=== PATIENT | female | born 1985 | race Two or more races ===

== ENCOUNTER → 2023-01-09 | Day surgery (SDC) | payer OTHER | END | disposition home or self-care (01) | LOC: EDBD → CIR.AMB 11:01 | PROVIDERS: ATTEND Obstetrics & Gynecology | DX: O02.1 Missed abortion (principal); O72.2 Delayed and secondary postpartum hemorrhage; Z20.822 Contact with and (suspected) exposure to COVID-19 ==

== ENCOUNTER 2023-09-15 08:20 | Emergency (ER) | payer OTHER ==
[~2023-09-15] VITALS: Ht 172.7 cm; Wt 93.0 kg
[2023-09-15 09:53] LABS: HEMATOCRIT 38.5 % (36.0-45.00); HEMOGLOBIN 12.7 g/dL (12.0-15.00); MEAN CELL VOLUME 82.7 fL (80.00-100.00); MEAN CORPUSCULAR HEMOGLOBIN 27.4 pg (27.00-32.0); MEAN CORPUSCULAR HGB CONC 33.1 g/dl (32.0-36.0); PLATELET COUNT 231 K/uL (150-450); RED BLOOD COUNT 4.66 M/uL (4.00-6.00); RED CELL DISTRIBUTION WIDTH 14.7 % (11.5-14.5)
[2023-09-15 10:18] LABS: INR 0.94; PROTHROMBIN TIME 9.9 SECONDS (9.0-11.5)
[2023-09-15 11:03] LABS: CALCIUM 9.4 mg/dL (8.5-10.1); CREATININE SERUM 0.72 mg/dL (0.55-1.02); GFR 92.18; POTASSIUM 3.36 mEq/L (3.5-5.1)
== END 2023-09-15 15:39 | disposition home or self-care (01) ==
LOC: ER 08:20
PROVIDERS: General Practice
DX: O26.899 Other specified pregnancy related conditions, unspecified trimester (principal); R10.2 Pelvic and perineal pain; Z3A.09 9 weeks gestation of pregnancy

== ENCOUNTER 2024-03-21 11:28 | Outpatient (CLI) | payer OTHER | END 2024-03-21 12:14 | disposition home or self-care (01) | LOC: NST 11:28 | PROVIDERS: ATTEND Obstetrics & Gynecology | DX: Z34.83 Encounter for supervision of other normal pregnancy, third trimester (principal) ==

== ENCOUNTER 2024-04-10 10:46 | Inpatient (IN) | payer OTHER ==
[~2024-04-10] VITALS: Ht 172.7 cm; Wt 103.4 kg
[2024-04-12 15:57] VITALS: BP 119/76
[2024-04-12] MEDS ORDERED: RINGERS SOLUTION,LACTATED 1,000 ML IV SCH (16:45)
[2024-04-12 16:55] LABS: URINE BILIRRUBIN Negative (NEGATIVE); URINE BLOOD Small; URINE COLOR Yellow; URINE GLUCOSE Negative (NEGATIVE); URINE KETONE Trace (NEGATIVE); URINE LEUKOCYTE Trace; URINE NITRATE Negative; URINE PROTEIN 30 (NEGATIVE)
[2024-04-12 16:56] LABS: URINE BACTERIA 303.6 uL (0.0-1933); URINE RBC 88.4 uL (0.0-20.8); URINE WBC 8.5 uL (0.0-23.2)
[2024-04-12 17:02] LABS: URINE APPEARANCE CLEAR
[2024-04-12 17:08] LABS: HEMATOCRIT 32.5 % (36.0-45.00); HEMOGLOBIN 11.1 g/dL (12.0-15.00); MEAN CELL VOLUME 81.6 fL (80.00-100.00); MEAN CORPUSCULAR HEMOGLOBIN 27.9 pg (27.00-32.0); MEAN CORPUSCULAR HGB CONC 34.2 g/dl (32.0-36.0); RED BLOOD COUNT 3.98 M/uL (4.00-6.00); RED CELL DISTRIBUTION WIDTH 15.4 % (11.5-14.5)
[2024-04-12 17:20] LABS: INR < 0.93; PARTIAL THROMBOPLASTIN TIME 23.6 SECONDS (22.0-34.0); PROTHROMBIN TIME 9.9 SECONDS (9.0-11.5)
[2024-04-12 17:28] LABS: ALBUMIN 2.8 gm/dL (3.4-5.0); BILIRUBIN TOTAL 0.75 mg/dL (0.3-1.2); CALCIUM 9.2 mg/dL (8.5-10.1); CREATININE SERUM 0.57 mg/dL (0.55-1.02); GFR 120.01; POTASSIUM 4.13 mEq/L (3.5-5.1); TOTAL PROTEIN 6.8 gm/dL (6.4-8.2)
[2024-04-12 17:40] LABS: PLATELET COUNT 144 K/uL (150-450)
[2024-04-12 20:00] VITALS: BP 121/59
[2024-04-12 23:25] VITALS: BP 128/74
[2024-04-13] VITALS (8 sets, daily range): BP systolic 120–137; BP diastolic 53–74
[2024-04-13] MEDS ORDERED: MORPHINE SULFATE 4 MG/ML CARTRIDGE IV PRN (00:45)
[2024-04-13] MEDS ORDERED: OXYTOCIN 20 UNITS/500ML RL PIGGYBAG IV ONE (07:03)
[2024-04-13] MEDS ORDERED: OXYTOCIN 500 ML IV NR (07:30)
[2024-04-13] MEDS ORDERED: OXYTOCIN 20 UNITS/1000ML RL PIGGYBAG IV ONE (07:52)
[2024-04-13] MEDS ORDERED: ERYTHROMYCIN BASE 1 GM TUBE OP ONE ×2 (07:52→12:30)
[2024-04-13] MEDS ORDERED: CHLORHEXIDINE GLUCONATE 120 ML BOTTLE TOP ONE ×2 (07:52→12:30)
[2024-04-13] MEDS ORDERED: LIDOCAINE HCL 1% 10ML VIAL ONE ×2 (07:52→11:22)
[2024-04-13] MEDS ORDERED: NALOXONE HCL 0.4 MG/ML AMPUL ONE (10:20)
[2024-04-13] MEDS ORDERED: OxyCODONE HCL/APAP UD (PERCOCET) PO PRN (12:00)
[2024-04-13] MEDS ORDERED: OXYTOCIN 1,000 ML IV SCH ×2 (12:00→12:30)
[2024-04-13] MEDS ORDERED: IBUprofen 400 MG TABLET PO PRN (12:00)
[2024-04-13] MEDS ORDERED: LIDOCAINE HCL 1% 10ML VIAL IJ ONE ×2 (12:30)
[2024-04-13] MEDS ORDERED: NALOXONE HCL 0.4 MG/ML AMPUL IV ONE (12:30)
[2024-04-14] VITALS: BP 103/57
[2024-04-14 08:00] VITALS: BP 129/82
[2024-04-14] MEDS ORDERED: HYDROCORTISONE 2.5% 30 GM TUBE TOP SCH (09:00)
[2024-04-14 15:32] VITALS: BP 138/76
[2024-04-15 00:59] VITALS: BP 135/82
[2024-04-15 09:23] VITALS: BP 116/82
== END 2024-04-15 12:23 | disposition home or self-care (01) | DRG 807 ==
LOC: OB/GYN 10:46 → LDR 04-12 16:10 → OB/GYN 04-13 14:07
PROVIDERS: Obstetrics & Gynecology; ADMIT Obstetrics & Gynecology; ATTEND Obstetrics & Gynecology
PROC: 4A1HXCZ Monitoring of Products of Conception, Cardiac Rate, External Approach (ICD-10-PCS; 2024-04-12)
PROC: 10E0XZZ Delivery of Products of Conception, External Approach (ICD-10-PCS; principal; 2024-04-13)
PROC: 0KQM0ZZ Repair Perineum Muscle, Open Approach (ICD-10-PCS; 2024-04-13)
PROC: 0W8NXZZ Division of Female Perineum, External Approach (ICD-10-PCS; 2024-04-13)
DX: O70.1 Second degree perineal laceration during delivery (principal); Z37.0 Single live birth; Z3A.39 39 weeks gestation of pregnancy; Z20.822 Contact with and (suspected) exposure to COVID-19